=== PATIENT | male | born 1995 | race American Indian/Alaskan Native ===

== ENCOUNTER 2019-10-10 13:22 | Emergency (ER) | payer SELFPAY ==
--- NOTE | 2019-10-10 13:27 | EDM.PDOCBH ---
ED HPI GENERAL MEDICAL PROBLEM - General Chief Complaint: Drug or Alcohol Abuse Stated Complaint: [facility] Time Seen by Provider: 10/10/19 13:22 Source of Information: Reports: Patient, EMS History Limitations: Reports: Intoxication, Uncooperative - History of Present Illness INITIAL COMMENTS - FREE TEXT/NARRATIVE: 23-year-old male was pulled over for DWI, on the way to the assisted he had decreased mental status and became somewhat unresponsive so they brought him into the emergency room by ambulance. He still is acting very lethargic and intoxicated but he is answering questions. Vital signs are stable. Onset: Unknown/Unsure Associated Symptoms: Reports: Confusion. Denies: Loss of Appetite, Malaise, Nausea/Vomiting, Shortness of Breath - Related Data Allergies Allergy/AdvReac Type Severity Reaction Status Date / Time Unable to Assess Allergy Unverified 10/10/19 14:07 Home Meds: Home Meds . [Unable to Verify Home Med List] 10/10/19 [History] ED ROS GENERAL - Review of Systems Review Of Systems: See Below Reason Not Obtained: Patient unable to cooperate ED EXAM, BEHAVIORAL HEALTH - Physical Exam Exam: See Below Exam Limited By: No Limitations General Appearance: Alert, No Apparent Distress (Patient is in no distress, fairly lethargic but does answer questions) Eye Exam: Bilateral Eye: PERRL Head: Atraumatic Respiratory/Chest: No Respiratory Distress, Lungs Clear Cardiovascular: Regular Rate, Rhythm Neurological: Disoriented to Time (Knows he is in the emergency room and knows his identity, confused to time) Skin Exam: Warm, Dry Comments: Patient markedly improved after an hour and a half of rest, he was ambulating without difficulty and was oriented. Speech was still a little slurred but neurologically he was otherwise intact. COURSE, BEHAVIORAL HEALTH COMP - Course Vital Signs: Last Vital Signs Temp 97.0 F 10/10/19 14:18 Pulse 87 10/10/19 15:51 Resp 16 10/10/19 15:51 BP 106/62 10/10/19 15:51 Pulse Ox 98 10/10/19 15:51 Orders, Labs, Meds: Laboratory Tests 10/10/19 10/10/19 10/10/19 Range/Units 13:25 13:25 13:25 WBC 7.6 (4.5-11.0) K/uL RBC 4.73 (4.30-5.90) M/uL Hgb 14.0 (12.0-15.0) g/dL Hct 42.3 (40.0-54.0) % MCV 89 (80-98) fL MCH 30 (27-31) pg MCHC 33 (32-36) % Plt Count 274 (150-400) K/uL Neut % (Auto) 63 (36-66) % Lymph % (Auto) 26 (24-44) % [place] % (Auto) 9 H (2-6) % Eos % (Auto) 2 (2-4) % Baso % (Auto) 1 (0-1) % Sodium 143 (140-148) mmol/L Potassium 3.3 L (3.6-5.2) mmol/L Chloride 106 (100-108) mmol/L Carbon Dioxide 26 (21-32) mmol/L Anion Gap 14.3 H (5.0-14.0) mmol/L BUN 12 (7-18) mg/dL Creatinine 1.0 (0.8-1.3) mg/dL Est Cr Clr Drug Dosing 112.45 mL/min Estimated GFR (MDRD) > 60 (>60) Glucose 83 (74-106) mg/dL Calcium 7.9 L (8.5-10.1) mg/dL Ethyl Alcohol 96 mg/dL Re-Assessment/Re-Exam: CBC, BMP and EtOH were obtained. If patient remains physically stable for the next hour he can return to assisted. EtOH was 0.096. CBC and BMP were reassuring. After an hour and a half the patient woke up and admitted that he had also taken gabapentin. We called law enforcement and they do not want anything to do with him now, we are told to just discharge him. We got a hold of his family for a ride. Departure - Departure Time of Disposition: 17:40 Disposition: Home, Self-Care 01 Clinical Impression: Polysubstance abuse Alcohol intoxication Qualifiers: Complication of substance-induced condition: uncomplicated Qualified Code(s): F10.920 - Alcohol use, unspecified with intoxication, uncomplicated - Discharge Information Instructions: Substance Use Disorder Referrals: PCP,None [Primary Care Provider] - Forms: ED Department Discharge Care Plan Goals: Avoid abusing alcohol and illicit drugs in the future. Sepsis Event Note (ED) - Focused Exam Vital Signs: Vital Signs Temp Pulse Resp BP Pulse Ox 10/10/19 15:51 87 16 106/62 98 10/10/19 14:18 97.0 F 70 20 120/71 98
== END 2019-10-10 17:40 | disposition home or self-care (01) ==
LOC: JP.ED 13:22
DX: F10.120 Alcohol abuse with intoxication, uncomplicated (principal); F19.10 Other psychoactive substance abuse, uncomplicated; Y90.4 Blood alcohol level of 80-99 mg/100 ml
CPT/HCPCS: 36415; 80048; 80307; 85025; 99283; 99284